=== PATIENT | female | born 1930 | race Caucasian/White ===

== ENCOUNTER → 2017-08-28 | Outpatient (CLI) | payer OTHER, MEDICARE ==
[~2017-08-28] VITALS: Ht 160 cm; Wt 81.2 kg
[~2017-08-28] MED LIST: ASPIRIN325 PO; COZAAR 50 MG TA50 MG PO; DILAUDID 2 MG TA2 MG PO; METFORMIN HCL500 MG PO; OMEPRAZOLE40 MG PO; OXYBUTYNIN 5 MG5 M2 PO; SIMVASTATIN40 MG PO; TOPROL XL25 MG PO
--- NOTE | ~2017-08-28 | HPC ---
[address] [address] PAIN MANAGEMENT CONSULTATION Name: XNIFAYE R [id number] Admission: 08/28/17 Attend Phys: Moiz Rodriguez DO Discharge: Date of : [birth year]/16/[birth year] Report #: [id number] THIS REPORT FOR: //name// CC: Jamshid Rodriguez HISTORY OF PRESENT ILLNESS: The patient is an 87-year-old female seen in consultation at the request Dr. Jamshid Valencia for assistance with management of chronic pain concerns including lumbar radiculopathy. The patient notes she has had pain since 1997, was treated in [place], she does preserve medical records noting multiple therapeutic interventions including right SI joint injections, trigger point injections, epidural injections, radiofrequency neurolysis on 03/22/2013, multiple facet joint injections, progressing to spinal cord stimulator ([email or web address]) implanted on 11/28/2014. She relocated from [place] to [place] in February 2015, to be near to family. She has been managed appropriately by Dr. Jamshid Valencia currently taking hydromorphone 4 mg 2-3 times a day, limit 60 tablets for 30 days. She has a spinal cord stimulator placed to help some with radicular pain, but states that her left radicular component pain is getting worse. She states she feels "lumps" occasionally with spasm in the left calf. She has been using a walker for 4 years when outside of the home due to ongoing pain. She notes the pain is exacerbated with standing and walking, some relief when she is sitting. Describes periodic, burning, aching pain, she rates anywhere from 8-10 on a VAS. She denies specific weakness, saddle anesthesia or bowel or bladder continence changes. Again, pain is in the low back, posterior aspect of the left leg down to the foot. REVIEW OF SYSTEMS: Complete review of systems attached to chart and gone over with the patient. She is , seen in the company of her who is supportive. Does not smoke or drink alcohol to excess. History of glucose intolerance, currently takes metformin; hypertension; treated with losartan and metoprolol; gastroesophageal reflux for which she takes metoprolol; dyslipidemia for which she takes simvastatin; some bladder spasm and urinary incontinence issues for which she takes oxybutynin. She is extremely hard of hearing. She has had surgery in bilateral knees and carpal tunnel surgery. She is loathe to have back surgery. She has had a spinal cord stimulator implanted. She is retired. Pain impact score is fairly high, averaging about 49/70. PHYSICAL EXAMINATION: [facility] [address] [place] [address] PAIN MANAGEMENT CONSULTATION Name: FAYE LAUREN Room #: REG KECIA Barcenas#: [id number] Admission: 08/28/17 Attend Phys: Moiz Rodriguez DO Discharge: Date of : [birth year] Report #: [id number] VITAL SIGNS: 5 feet 3 inches, 179 pounds female, BMI is 31.7 kilograms per meter squared. Blood pressure is 133/56, pulse 60, respirations of 16. NEUROLOGIC: Cranial nerves 2-12 are grossly intact. HEENT: Pupils equal, react to light and accommodation. Extraocular muscles are intact. There is no nystagmus, lateral gaze deviation. Again, she has significant decrease in her auditory acuity. NECK: Thyroid is modestly enlarged, no nodules are noted. HEART: Regular and rhythmical with a 2/6 systolic ejection murmur. LUNGS: Clear to auscultation. ABDOMEN: Shows modestly endomorphic build. MUSCULOSKELETAL: She does have thoracic kyphosis noted. Upper extremity strength is generally preserved. Upper extremity strength is preserved. Rises from chair using armrest, has stooped posture with notable thoracolumbar scoliosis. Tender over the right SI joint. Lower extremity strength is generally preserved. Patellar, Achilles reflexes are preserved. Straight leg raise is negative. MY test is equivocal. ASSESSMENT: 1. Symptomatic lumbar radiculopathy with left L5 radicular pain pattern. 2. Component of lumbar spondylosis. RECOMMENDATIONS: We will get CT scan of the lumbar spine. Follow up afterwards for consideration for interventional therapy including possible left L5-S1 transforaminal epidural injection versus facet joint injections under fluoroscopy. We will ask [email or web address] to be available to evaluate and optimize spinal cord stimulator patterns. Thanks for allowing me to participate in the patient's care. We will look for interventional therapy that may help mitigate current pain. Currently, she is on appropriate p.r.n. opiate analgesics at a moderate dose, even taking two hydromorphone 4 mg a day, she is under 30 mEq of morphine daily. Again, thank you for allowing me to participate in the patient's the care. I will keep you abreast of her progress. <ELECTRONICALLY SIGNED> By: Moiz Rodriguez DO 08/30/17 0834 1542 2113 Moiz Rodriguez DO /nt
[2017-08-28 14:11] VITALS: BP 133/56
== END ==
LOC: PAIN 07:35
DX: M54.16 Radiculopathy, lumbar region (principal); M47.896 Other spondylosis, lumbar region

== ENCOUNTER → 2017-08-30 | Outpatient (CLI) | payer OTHER, MEDICARE | LOC: CAT 08:38 | DX: M48.061 Spinal stenosis, lumbar region without neurogenic claudication (principal); M41.86 Other forms of scoliosis, lumbar region ==

== ENCOUNTER 2017-09-08 14:39 | Inpatient (IN) | payer OTHER, MEDICARE ==
[~2017-09-08] VITALS: Ht 160 cm; Wt 77.7 kg
[2017-09-08] VITALS (10 sets, daily range): BP systolic 90–144; BP diastolic 46–94
--- NOTE | ~2017-09-08 | 2DMMODE ---
[facility] [address] [place] [address] 2 D/M-MODE ECHOCARDIOGRAM Name: FAYE LAUREN Room #: 210-P ADM IN M.R.#: [id number] Admission: 09/08/17 Attend Phys: Christo Velásquez Discharge: Date of : [birth year] Date of Service: 09/11/17 1222 Report #: [id number] THIS REPORT FOR: //name// APPROVED REPORT Study performed: 09/11/2017 10:54:40 EXAM: Comprehensive 2D, Doppler, and color-flow Echocardiogram Patient Location: Bedside Room #: 210 Status: routine BSA: 1.81 HR: 70 bpm BP: 150/64 mmHg Other Information Study Quality: Adequate Indications Diabetes Atrial Fibrillation AVR 2D Dimensions RVDd: 34.13 mm LVEF(%): 58.35 (>50%) IVSd: 11.32 (7-11mm) LVOT Diam: 17.79 (18-24mm) LVDd: 44.32 mm PWd: 11.19 (7-11mm) Ascending Ao: 33.33 (22-36mm) LVDs: 30.74 (25-40mm) Aortic Root: 30.34 mm IVC: 12.00 mm You's LVEF: 58.35 % Volumes Left Atrial Volume (Systole) Single Plane 4CH: 68.75 mL Single Plane 2CH: 49.98 mL LA ESV Index: 35.00 mL/m2 Aortic Valve AoV Peak Dylan.: 2.84 m/s AO Peak Gr.: 32.49 mmHg LVOT Max P.37 mmHg AO Mean Gr.: 18.34 mmHg LVOT Mean P.89 mmHg AO V2 Mean: 1.99 m/s LVOT Max V: 1.16 m/s AO V2 VTI: 53.28 cm LVOT Mean V: 0.77 m/s SHREYA (VTI): 1.03 cm2 LVOT V1 VTI: 22.02 cm SHREYA Vmax: 1.01 cm2 [facility] [address] [place] [address] 2 D/M-MODE ECHOCARDIOGRAM Name: FAYE LAUREN Room #: 210-P [facility] IN .R.#: [id number] Admission: 09/08/17 Attend Phys: Christo Velásquez Discharge: Date of : [birth year]/16/[birth year] Date of Service: 09/11/17 1222 Report #: [id number] SV (LVOT): 54.71 mL Mitral Valve MV Decel. Time: 298.76 ms MV E Max Dylan.: 1.40 m/s Pulmonary Valve PV Peak Dylan.: 1.25 m/s PV Peak Gr.: 6.35 mmHg Tricuspid Valve TR Peak Dylan.: 2.34 m/s TR Peak Gr.: 22.01 mmHg PA Pressure: 27.00 mmHg Left Ventricle The left ventricle is normal size. There is normal LV segmental wall motion. There is normal left ventricular wall thickness. The left ventricular systolic function is normal. The left ventricular ejection fraction is within the normal range. LVEF is 60-65%. This study is not technically sufficient to allow evaluation of the LV diastolic function due to atrial fibrillation. Right Ventricle The right ventricle is normal size. The right ventricular systolic function is normal. Atria Left atrium is dilated. Right atrium is at the upper limits of normal. Aortic Valve Bioprosthetic aortic valve is present. No aortic regurgitation is present. Mitral Valve Heavy mitral annular calcification Mild mitral regurgitation. No evidence of mitral valve stenosis. Tricuspid Valve The tricuspid valve is normal in structure. There is mild to moderate tricuspid regurgitation. Estimated PAP 27 mmHg. There is no pulmonary hypertension. Pulmonic Valve The pulmonary valve is normal in structure. Trace pulmonic regurgitation. There is no pulmonic valvular regurgitation. [facility] [address] [place] [address] 2 D/M-MODE ECHOCARDIOGRAM Name: FAYE LAUREN Room #: 210-P [facility] IN ..#: [id number] Admission: 09/08/17 Attend Phys: Christo Velásquez Discharge: Date of : 06/16/28 Date of Service: 09/11/17 1222 Report #: [id number] Great Vessels The aortic root is normal in size. IVC is normal in size and collapses >50% with inspiration. Pericardium There is no pericardial effusion. <Conclusion> The left ventricular systolic function is normal. There is normal LV segmental wall motion. LVEF is 60-65%. Left atrium is dilated. Bioprosthetic aortic valve is present. Peak gradient 33mm, mean 18mmHg; no aortic insufficiency Heavy mitral annular calcification. Mild mitral regurgitation. Pulmonary artery pressure of 27mmHg There is no pericardial effusion. <ELECTRONICALLY SIGNED> By: David Perdue MD, FACC 09/11/17 1222 1222 122 David Perdue MD, FACC /INF
--- NOTE | ~2017-09-08 | EKG ---
[address] [place] [address] ELECTROCARDIOGRAM REPORT Name: FAYE LAUREN Room #: 210-P ADM IN M.R.#: [id number] Admission: 09/08/17 Attend Phys: Christo Grimes Discharge: Date of : [birth year]/16/[birth year] Report #: [id number] THIS REPORT FOR: //name// [facility] ED Test Date: 2017-09-08 Test Time: 16:04:12 Pat Name: FAYE LAUREN Department: Room: 210 Gender: F Bilingual Medical Assistant: [id number] : 1930 Requested By: Ivanna Valencia Order Number: [id number] MD: David Perdue Measurements Intervals [place] Rate: 128 P: WA: QRS: 42 QRSD: 136 T: 25 QT: 353 QTc: 515 Interpretive Statements Atrial fibrillation Right bundle branch block No previous ECG available for comparison Electronically Signed On 09-09-2017 15:52:15 PAPER CUTTING MACHINE OPERATOR by David Perdue [email or web address] <ELECTRONICALLY SIGNED> By: David Perdue MD, [facility] 09/09/17 1552 1604 1604 David Perdue MD, FACC /EPI
[~2017-09-08 14:39] MED LIST changes: -DIGOXIN125 MCG PO; -ELIQUIS5 MG PO; -METOPROLOL SUCC50 MG PO
[2017-09-08 15:15] LABS: BASOPHILS 0.6 % (0.0-2.0); EOSINOPHILS 2.7 % (0.0-3.0); HEMATOCRIT 43.9 % (37.0-47.0); HEMOGLOBIN 15.2 gm/dL (12.0-15.0); LYMPHOCYTES 23.3 % (24.0-44.0); MCH 33.1 pg (26.0-34.0); MCHC 34.5 g/dL (28.0-37.0); MCV 95.9 fL (80.0-100.0); MONOCYTES 7.8 % (1.0-8.0); PLATELET COUNT 279 thou/uL (150-400); POLYS 65.6 % (36.0-66.0); RBC 4.58 mil/uL (4.20-5.00); RDW 13.2 % (10.5-14.5); WBC 9.2 thou/uL (4.0-11.0)
[2017-09-08 15:16] LABS: MANUAL DIFF NO
[2017-09-08 15:22] LABS: ANION GAP 9 mmol/L (7-16); BUN 16 mg/dL (7-18); CALCIUM 9.3 mg/dL (8.5-10.1); CHLORIDE 102 mmol/L (98-107); CO2 26 mmol/L (21-32); CREATININE 1.1 mg/dL (0.6-1.0); GLUCOSE 124 mg/dL (74-106); POTASSIUM 4.4 mmol/L (3.5-5.1); SODIUM 137 mmol/L (136-145)
[2017-09-08 15:31] LABS: TROPONIN-I < 0.04 ng/mL (<0.06)
[2017-09-08 16:09] LABS: APTT 35.6 Seconds (24.5-32.8); PROTIME 10.2 Seconds (9.3-11.4)
[2017-09-08 16:38] LABS: CHOLESTEROL 150 mg/dL (<200); HDL CHOLESTEROL 49 mg/dL (>40); LDL CHOLESTEROL 76 mg/dL (<100); TC:HDL 3.1 Ratio (Not establshd); TRIGLYCERIDE 125 mg/dL (<150); VLDL 25 mg/dL (<40)
[2017-09-09] VITALS (27 sets, daily range): BP systolic 90–164; BP diastolic 56–111
[2017-09-10] VITALS (12 sets, daily range): BP systolic 111–158; BP diastolic 55–99
[2017-09-11 03:40] VITALS: BP 149/85
[2017-09-11 07:17] VITALS: BP 150/64
[2017-09-11] MEDS ORDERED: ELIQUIS5 MG PO (08:59)
[2017-09-11] MEDS ORDERED: DIGOXIN125 MCG PO (09:00)
[2017-09-11] MEDS ORDERED: METOPROLOL SUCC50 MG PO (09:01)
[2017-09-11 10:18] LABS: CALCIUM 8.6 mg/dL (8.5-10.1); CREATININE 0.9 mg/dL (0.6-1.0); POTASSIUM 3.9 mmol/L (3.5-5.1)
[2017-09-11 11:50] VITALS: BP 133/79
[2017-09-11 15:40] VITALS: BP 157/93
[2017-09-11 19:35] VITALS: BP 151/86
[2017-09-11 22:54] VITALS: BP 151/86
[2017-09-12 03:48] VITALS: BP 144/91
[2017-09-12 07:48] VITALS: BP 180/88
[2017-09-12] MEDS ORDERED: METOPROLOL SUCC50 MG PO (09:27)
[2017-09-12 11:35] VITALS: BP 113/89
[2017-09-12 12:09] VITALS: BP 113/89
== END 2017-09-12 14:35 | disposition home or self-care (01) | DRG 309 ==
LOC: ER 14:39 → 2N 16:16 → EROBS 16:16 → 2N 17:45 → ENTRNSPT 09-12 14:09 → EDTRNSPTSTS 09-12 14:11 → 2N 09-12 14:35
PROVIDERS: Emergency Medicine; Hospitalist; Nurse Practitioner Gerontology
PROC: B24BZZ4 Ultrasonography of Heart with Aorta, Transesophageal (ICD-10-PCS; principal; 2017-09-11)
DX: I48.91 Unspecified atrial fibrillation (principal); F11.23 Opioid dependence with withdrawal; G89.29 Other chronic pain; R19.7 Diarrhea, unspecified; Z96.653 Presence of artificial knee joint, bilateral; Z79.82 Long term (current) use of aspirin; Z79.899 Other long term (current) drug therapy
CPT/HCPCS: 10194

== ENCOUNTER → 2017-09-08 | Outpatient (CLI) | payer OTHER, MEDICARE ==
[~2017-09-08] VITALS: Ht 160 cm; Wt 78.9 kg
[~2017-09-08] MED LIST changes: +DIGOXIN125 MCG PO; +ELIQUIS5 MG PO; +METOPROLOL SUCC50 MG PO; +TIZANIDINE4 MG/1 TA1 PO
--- NOTE | ~2017-09-08 | HPC ---
[facility] [place] [address] PAIN MANAGEMENT CONSULTATION Name: FAYE LAUREN Room #: REG KECIA Barcenas#: [id number] Admission: 09/08/17 Attend Phys: Moiz Rodriguez DO Discharge: Date of : 06/16/[birth year] Report #: [id number] THIS REPORT FOR: //name// CC: Jamshid Rodriguez HISTORY OF PRESENT ILLNESS: The patient is an 87-year-old female, prior seen in pain clinic on 08/28/2017. At that time, the patient was seen in consultation for concerns with lumbar radiculopathy. She was complaining primarily of left leg radicular pain. She had a [employer] spinal cord stimulator in place, which she felt was not getting good efficacy. She had a component of lumbar spondylosis. I ordered a CT of the lumbar spine which was accomplished, the patient presents to pain clinic today. We had a prolonged visit today, she was seen for approximately 30 minutes and ultimately transferred to the ER. Regarding the left lumbar radicular pain, was actually fairly nominal at present. I reviewed the CT, which was obtained on 08/30/2017. CT of the lumbar spine demonstrated severe lower lumbar levorotoscoliosis with direct bony impingement on the exiting L3 and L4 nerve roots. We had discussed moving forward with lumbar epidural injection under fluoroscopy today for the radicular component of pain if we would not get good coverage with the stimulator. Today, [employer] sales representative business courses was here. He spent some time reprogramming the stimulator with a bolus of high frequency stimulation patterns accomplished. The patient is complaining of a new complaint of pain primarily in the upper neck and shoulders. She notes it started on Monday without antecedent trauma and overuse. PHYSICAL EXAMINATION: Shows some tenderness in the splenius capitis and trapezius, but no discrete trigger points are noted. Cervical range of motion is modestly limited. Upper extremity strength is symmetric. Deep tendon reflexes are preserved. Negative Lhermitte's. Concerningly, the patient's vital signs were stable at her initial presentation and today her pulse was in the 123 range. Blood pressure was 118/94, respirations 16. I palpated an irregularly irregular rate. I did order an EKG, which showed sinus tachycardia with an irregular rate at 134 beats per minute. I can discern no P waves, again does have a little right bundle-branch block and an irregularly irregular rate. I believe this is new onset atrial fibrillation and given concern that prior medical history has included heart surgery, we elected to have the patient transferred to the ER. Ironically, she was also asking of the name of a salesperson men's and boys' clothing. I assured her that she would get a salesperson men's and boys' clothing assigned from the ER today. [address] [address] PAIN MANAGEMENT CONSULTATION Name: FAYE LAUREN Room #: REG KECIA Barcenas#: [id number] Admission: 09/08/17 Attend Phys: Moiz Rodrgiuez DO Discharge: Date of : 06/16/[birth year] Report #: [id number] Ultimately, I did give her a prescription for tizanidine 10 mg t.i.d. for neck spasm, again the stimulator was reprogrammed today for the lumbar radicular pain. I will see her in September for reevaluation. If she is not on a blood thinner at that time (if they are able to convert her back to normal sinus rhythm (we may consider epidural injection under fluoroscopy, likely midline L4-L5?) Discharged in good and stable condition after prolonged visit. <ELECTRONICALLY SIGNED> By: Moiz Rodriguez DO 09/13/17 0808 1517 0130 Moiz Rodriguez DO /nt
--- NOTE | ~2017-09-08 | EKG ---
[address] [address] ELECTROCARDIOGRAM REPORT Name: FAYE LAUREN [facility]: [facility]#: [id number] Admission: 09/08/17 Attend Phys: Moiz Rodriguez DO Discharge: Date of : 06/16/[birth year] Report #: [id number] THIS REPORT FOR: //name// [facility] Test Date: 2017-09-08 Test Time: 14:28:30 Pat Name: FAYE LAUREN Department: Room: Gender: F Roll Grinder: gloria : 1930 Requested By: Moiz Rodriguez Order Number: [id number] MD: Measurements Intervals [place] Rate: 134 P: 86 [place]: 60 QRS: 78 QRSD: 133 T: 47 QT: 345 QTc: 515 Interpretive Statements Sinus tachycardia with irregular rate Right bundle branch block No previous ECG available for comparison [email or web address] By: 27 142 Epiphany MD Sujata /EPI
[2017-09-08 13:37] VITALS: BP 118/94
== END ==
LOC: PAIN 07:03
DX: Z01.818 Encounter for other preprocedural examination (principal); M54.16 Radiculopathy, lumbar region

== ENCOUNTER → 2017-09-29 | Outpatient (CLI) | payer OTHER, MEDICARE ==
[~2017-09-29] VITALS: Ht 160 cm; Wt 78.6 kg
[~2017-09-29] MED LIST changes: +DIGOXIN125 MCG PO; +ELIQUIS5 MG PO; +LANOXIN 0.120.125 M1 PO; +METOPROLOL SUCC50 MG PO; +PACERONE 200 M200 M1 PO; +PRADAXA150 MG PO; +PROTONIX40 M1 PO; +ZANAFLEX4 MG PO
--- NOTE | ~2017-09-29 | HPC ---
[facility] [address] [facility] [place] [address] PAIN MANAGEMENT CONSULTATION Name: FAYE LAUREN Room #: REG [facility] Alan.#: [id number] Admission: 09/29/17 Attend Phys: Moiz Rodriguez DO Discharge: Date of : [birth year]/16/[birth year] Report #: [id number] THIS REPORT FOR: //name// CC: Jamshid Rodriguez The patient is an 87-year-old female prior seen in the pain clinic for symptomatic lumbar radiculopathy. She has a [employer] spinal cord stimulator in place. She has a component of lumbar spondylosis. She was having ongoing left lumbar radicular pain. I saw her at last visit on 09/08/2017. We talked about doing an epidural injection for the radicular component of pain. Unfortunately, she was a little lightheaded and was found to have new onset of atrial fibrillation. She was referred to the ER at that time. She returns to the pain clinic today. She is anticoagulated with Pradaxa currently. Using hydromorphone 4 mg appropriately prescribed by Dr. Valencia, she has prescription released on 08/25 for 90 tablets. She still has about 15 tablets left. Complaining today of ongoing pain, left leg, anterior lateral thighs and L3-L4 distribution. She rates the pain 8 on VAS, exacerbated with standing, walking and sitting. PHYSICAL EXAMINATION: Shows 87-year-old female, BMI 30.7 kilograms per meter squared. Vital signs are stable though pulses remain irregularly irregular. Rises from chair using armrest. She has a somewhat stooped posture, moderate thoracic kyphosis. Antalgic gait. Left leg shows decreased hip flexion, lower extremity extension strength, diminished patellar reflex and modestly positive straight leg raise on the side. Reviewed diagnostic findings including CT scan of the lumbar spine from 08/30/2017 noting severe lower lumbar levoscoliosis with rotational component and a significant impingement of the L3 and L4 nerve roots at the neural foramen. ASSESSMENT: Symptomatic lumbar radiculopathy by clinical exam and history, component of thoracolumbar scoliosis, spondylosis, currently anticoagulated with Pradaxa. RECOMMENDATIONS: 1. Continue current medication from Dr. Valencia, hydromorphone is appropriate. She is using it with discretion. 2. Consider epidural injection under fluoroscopy when she is able to hold Pradaxa for 5 days. Midline approach at L3-L4 and L4-L5 depending on access. [address] [address] PAIN MANAGEMENT CONSULTATION Name: FAYE LAUREN Room #: REG CLI Antonio#: [id number] Admission: 09/29/17 Attend Phys: Moiz Rodriguez DO Discharge: Date of : [birth year]/16/[birth year] Report #: [id number] Presently, we have elected to withhold interventional therapy at this time due to anticoagulant. <ELECTRONICALLY SIGNED> By: Moiz Rodriguez DO 10/02/17 0731 1503 0350 Moiz Rodriguez DO /arun
[2017-09-29 13:20] VITALS: BP 159/87
== END ==
LOC: NUC 06:50 → PAIN 06:50
DX: M54.16 Radiculopathy, lumbar region (principal); M41.85 Other forms of scoliosis, thoracolumbar region; M47.895 Other spondylosis, thoracolumbar region; Z79.01 Long term (current) use of anticoagulants

== ENCOUNTER → 2017-10-04 | Outpatient (CLI) | payer OTHER, MEDICARE | LOC: NUC 07:44 | DX: I48.92 Unspecified atrial flutter (principal); I25.10 Atherosclerotic heart disease of native coronary artery without angina pectoris; I35.0 Nonrheumatic aortic (valve) stenosis ==

== ENCOUNTER 2017-10-17 11:57 | Inpatient (IN) | payer OTHER, MEDICARE ==
[~2017-10-17] VITALS: Ht 160 cm; Wt 78.9 kg
--- NOTE | ~2017-10-17 | D ---
[facility] [place] [address] DISCHARGE SUMMARY Name: FAYE LAUREN Room #: 200-I [facility] IN M.R.#: [id number] Admission: 10/17/17 Attend Phys: Gentry Rogers Discharge: 10/18/17 Date of : [birth year] Report #: [id number] THIS REPORT FOR: //name// CC: Jamshid Rogers DATE OF SERVICE: 10/18/2017 ADMITTING DIAGNOSIS: Symptomatic paroxysmal atrial fibrillation. DISCHARGE DIAGNOSES: 1. Symptomatic paroxysmal atrial fibrillation. 2. Dyslipidemia. 3. Hypertension. DISCHARGE MEDICATIONS: 1. Home meds. 2. Stop digoxin and metoprolol. 3. Amiodarone 200 mg p.o. b.i.d. for 7 days and q.a.m. daily. FOLLOWUP: Dr. Rogers in 4 weeks. BRIEF CLINICAL HISTORY: See history and physical in the chart. HOSPITAL COURSE: The patient was admitted to the hospital and was started on IV amiodarone. Digoxin and metoprolol were stopped due to bradyarrhythmias. The patient converted to sinus bradycardia overnight. She had no significant issues, was ambulating without problems and discharge to home in improved and stable condition to follow up with previously stated discharge instructions and medications. DISCHARGE DIET: Salt restricted, heart healthy. <ELECTRONICALLY SIGNED> By: Gentry Rogres MD 10/20/17 0104 1448 2333 Gentry Rogers MD /arun
--- NOTE | ~2017-10-17 | EKG ---
[place] [address] [facility] [place] [address] ELECTROCARDIOGRAM REPORT Name: FAYE LAUREN Room #: 200-I ADM IN M.R.#: [id number] Admission: 10/17/17 Attend Phys: Gentry Rogers Discharge: Date of : [birth year]16[birth year] Report #: [id number] THIS REPORT FOR: //name// [facility] Test Date: 2017-10-18 Test Time: 09:09:36 Pat Name: FAYE LAUREN Department: Room: 200 I Gender: F Database Dba: FACUNDO : 1930 Requested By: Gentry Rogers Order Number: [id number] MD: David Perdue Measurements Intervals [place] Rate: 61 P: 95 [place]: 150 QRS: 62 QRSD: 140 T: -90 QT: 443 QTc: 447 Interpretive Statements Sinus rhythm Right bundle branch block Nonspecific inferior and lateral ST and T wave abnormality Compared to ECG 09/08/2017 16:04:12 Atrial fibrillation no longer present Electronically Signed On 10-18-2017 16:03:55 HOTEL VALET ATTENDANT by David Perdue [email or web address] <ELECTRONICALLY SIGNED> By: David Perdue MD, [facility] 10/18/17 1603 0909 0909 David Perdue MD, [facility] /EPI
[~2017-10-17 11:57] MED LIST changes: -PACERONE 200 M200 M1 PO; -PROTONIX40 M1 PO; -ZANAFLEX4 MG PO
[2017-10-17 13:43] LABS: HEMATOCRIT 42.6 % (37.0-47.0); HEMOGLOBIN 14.3 gm/dL (12.0-15.0); MCH 32.4 pg (26.0-34.0); MCHC 33.6 g/dL (28.0-37.0); MCV 96.4 fL (80.0-100.0); RBC 4.42 mil/uL (4.20-5.00); RDW 13.9 % (10.5-14.5)
[2017-10-17 13:51] LABS: POTASSIUM 3.9 mmol/L (3.5-5.1)
[2017-10-17 15:55] VITALS: BP 169/68
[2017-10-17 20:28] VITALS: BP 141/64
[2017-10-17 23:25] VITALS: BP 133/66
[2017-10-18 04:29] VITALS: BP 148/75
[2017-10-18 07:52] VITALS: BP 151/70
[2017-10-18 11:41] VITALS: BP 137/73
[2017-10-18] MEDS ORDERED: PROTONIX40 M1 PO (14:41)
[2017-10-18] MEDS ORDERED: PACERONE 200 M200 M1 PO (14:43)
[2017-10-18 15:01] VITALS: BP 137/73
[2018-06-20] MEDS ORDERED: ZANAFLEX4 MG PO (13:37)
== END 2017-10-18 16:00 | disposition home or self-care (01) | DRG 310 ==
LOC: 2N 11:57 → ENTRNSPT 10-18 15:31 → EDTRNSPTSTS 10-18 15:37 → 2N 10-18 16:00
PROVIDERS: Internal Medicine
DX: I48.0 Paroxysmal atrial fibrillation (principal); E78.5 Hyperlipidemia, unspecified; I10 Essential (primary) hypertension; Z79.899 Other long term (current) drug therapy
CPT/HCPCS: 10081